=== PATIENT | female | born 1955 | race African-American/Black ===

== ENCOUNTER → 2016-08-23 | Outpatient (CLI) | payer OTHER ==
--- NOTE | 2016-08-24 13:22 | XCELERA REPORT ---
[address] [address] Lower Extremity Arterial Evaluation Name: JAIME ANDERSON Age: 60 yrs Gender: Female : 1955 Patient Status: Outpatient Patient Location: Study Date: 08/23/2016 02:47 PM Procedure: A color flow and duplex scan of the lower extremity arteries was performed bilaterally with velocity and waveform anaylsis. 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 The ankle-brachial index is 1.00. 0% stenosis noted. PPG's seem mildly diminished, reduced phasicity, in digits 1 and 5. Left Side Arterial Evaluation Normal velocity, waveform and triphasic flow are present, from the Common Femoral artery down to the infrageniculate vessels. The ankle-brachial index is 1.01. 0% stenosis noted. PPG's seem mildly diminished, reduced phasicity, in digit 5. Interpretation Summary Mild hemodynamically significant lesions in the bilateral lower extremities, on duplex imaging, at rest. The duplex study is perfectly normal, only PPG's are somewhat abnormal. : CURTIS MCKEON > Eliceo Zuluaga
== END ==
LOC: SP 14:36
PROVIDERS: ATTEND Podiatrist Foot & Ankle Surgery
DX: I73.9 Peripheral vascular disease, unspecified (principal)
CPT/HCPCS: 93925

== ENCOUNTER 2017-01-27 10:13 | Day surgery (SDC) | payer OTHER ==
[2017-01-25 17:54] LABS: ABSOLUTE BASOPHILS # (AUTO) 0.1 10^3/uL (0.0-0.2); ABSOLUTE EOSINOPHILS # (AUTO) 0.5 10^3/uL (0.0-0.6); ABSOLUTE LYMPHOCYTES (AUTO) 4.2 10^3/uL (0.5-4.7); ABSOLUTE MONOCYTES (AUTO) 0.6 10^3/uL (0.1-1.4); ABSOLUTE NEUT (AUTO) 3.8 10^3/uL (1.7-8.2); BASOPHILS % (AUTO) 1.1 % (0-2); HEMATOCRIT 37.6 % (36.0-47.0); HEMOGLOBIN 12.9 g/dL (12.0-15.5); HGB HCT DIFFERENCE 1.1; LYMPHOCYTES % (AUTO) 45.8 % (13-45); MEAN CORPUSCULAR HEMOGLOBIN 28.8 pg (27.0-33.4); MEAN CORPUSCULAR HGB CONC 34.5 g/dL (32.0-36.0); MEAN CORPUSCULAR VOLUME 84 fl (80-97); MONOCYTES % (AUTO) 6.7 % (3-13); RED BLOOD COUNT 4.49 10^6/uL (3.72-5.28); RED CELL DISTRIBUTION WIDTH 14.5 % (11.5-14.0); SEGMENTED NEUTROPHILS % (AUTO) 41.4 % (42-78); WHITE BLOOD COUNT 9.1 10^3/uL (4.0-10.5)
[2017-01-25 17:58] LABS: APPEARANCE,URINE CLEAR; BILIRUBIN,URINE NEGATIVE (NEGATIVE); GLUCOSE, URINE NEGATIVE (NEGATIVE); KETONES,URINE NEGATIVE (NEGATIVE); LEUKOCYTE ESTERASE,URINE NEGATIVE (NEGATIVE); NITRITE,URINE NEGATIVE (NEGATIVE); PROTEIN,URINE NEGATIVE (NEGATIVE); URINE SPECIFIC GRAVITY 1.024; UROBILINOGEN,URINE NEGATIVE mg/dL (<2.0)
[~2017-01-27 10:13] MED LIST: CLINDAMYCIN 600 MG/D5W RTU 600 MG/50 ML RTUPB IV PRN; RINGERS SOLUTION,LACTATED 1,000 ML IV PRN
[2017-01-27] MEDS ORDERED: BUPIVACAINE HCL 0.5 % INJ/PF 30 ML SDV ONE (11:36)
[2017-01-27] MEDS ORDERED: LIDOCAINE 2% INJ (20 MG/ML) 20 ML MDV ONE (11:37)
[2017-01-27] MEDS ORDERED: LIDOCAINE 2% INJ-PF (20 MG/ML) 10 ML AMPUL ONE (11:43)
[2017-01-27] MEDS ORDERED: MIDAZOLAM 2 MG/2 ML INJ ONE (11:43)
[2017-01-27] MEDS ORDERED: FENTANYL CITRATE INJ/PF 100 MCG/2 ML AMPUL ONE (11:43)
[2017-01-27] MEDS ORDERED: PROPOFOL INJ 200 MG/20 ML VIAL IV ONE (11:44)
--- NOTE | 2017-01-27 14:07 | [facility] OPERATIVE REPORT E ---
[facility] Operative Report NAME: JAIME ANDERSON AGE: 61Y DATE OF SURGERY: 01/27/2017 ROOM: PREOPERATIVE DIAGNOSIS: 1. Lipoma, dorsum right foot. 2. Dorsal exostosis, right foot. POSTOPERATIVE DIAGNOSIS: 1. Lipoma, dorsum right foot. 2. Dorsal exostosis, right foot. OPERATION: 1. Excision of lipoma, dorsum right foot. 2. Resection of dorsal exostosis, right foot. SURGEON: CURTIS MCKEON D.P.M. INTRAOPERATIVE FINDINGS: 1. Indicated the presence of a very large lipoma over the dorsal aspect of the foot located over the tarsal area of the right foot. 2. There was also a small exostosis present over the medial and lateral cuneiform. It appears also that there was slight shifting of the cuneiform bones communicating with the navicular and talus. Intraoperative findings were confirmed clinically and radiographically. PROCEDURE: With the patient laying in the dorsal recumbent position, right foot and leg were prepped and draped in the usual standard sterile orthopedic manner. Local anesthesia was administered which was a total ankle block. After the anesthetic effect was accomplished, the right leg was elevated for approximately 2 minutes of time and the right ankle pneumatic tourniquet was inflated up to 250 mmHg. After the blood was exsanguinated from the right foot, the right leg was brought to the level of the table and the margins of the soft tissue mass over the dorsal aspect of the right foot were marked first and after that, a curvilinear incision was placed right through the apical portion of the soft mass. The initial incision was deepened. The superficial and deep subcutaneous tissues were dissected via blunt and sharp dissection. All bleeders were ligated. All vital structures were identified and protected from surgical trauma. At this point, the presence of large lipoma was encountered. It was not a ganglion cyst the way it was felt originally. Very gingerly, the lipoma was removed from its capsulation. After the excision of the lipoma, there was also the presence of a dorsal exostosis over the medial and lateral cuneiform with the communication of the navicular and talus. At this point a periosteal incision was performed. Periosteal structures were dissected away and irregular bony contours were resected in toto. After the satisfactory resection of bone, the surgical area was irrigated with copious amounts of sterile saline solution. The denuded bone was coated with bone wax in order to prevent excessive bone bleeding. After that the periosteal structures were repositioned and closed with 3-0 Vicryl. At this point the right ankle pneumatic tourniquet was deflated. Circulation to the right foot returned to normal immediately as the normal digital color and temperature became apparent. The subcutaneous tissues were closed next from deep to superficial. The skin edges were repositioned and closed with 4-0 Nylon using continuous lock stitch. A Betadine compression dressing was applied around the right foot followed with an GLENIS bandage and a surgical shoe. This patient tolerated the procedures well and left the operating room with stable vital signs and in good condition. Patient was taken to the Recovery Room, alert, conscious and oriented. There were no permanent disabilities anticipated at this time. The immediate postoperative recovery was also very uneventful. The patient was sent home with instructions for postoperative care at home. Patient was also given pain medicine and antibiotics and the family was instructed on how to administer her medications. The patient was allowed to resume normal diet. Patient was instructed to ambulate with crutches without bearing any weight on the right foot. Again, there are no permanent disabilities anticipated at this time and the followup appointment was set in 72 hours. DICTATING PHYSICIAN: CURTIS MCKEON D.P.M. [id number] PHY#: [id number] ID: [id number] JOB#: [id number] ACCT: [id number] cc:CURTIS MCKEON D.P.M. > MTDD
== END 2017-01-27 14:21 | disposition home or self-care (01) ==
LOC: SC 10:13
PROVIDERS: ATTEND Podiatrist Foot & Ankle Surgery
PROC: 0JBQ0ZZ Excision of Right Foot Subcutaneous Tissue and Fascia, Open Approach (ICD-10-PCS; 2017-01-27)
PROC: 0QBL0ZZ Excision of Right Tarsal, Open Approach (ICD-10-PCS; principal; 2017-01-27 11:15)
DX: M25.774 Osteophyte, right foot (principal); D17.39 Benign lipomatous neoplasm of skin and subcutaneous tissue of other sites; I10 Essential (primary) hypertension; K21.9 Gastro-esophageal reflux disease without esophagitis; E66.9 Obesity, unspecified; E11.9 Type 2 diabetes mellitus without complications; Z68.41 Body mass index [BMI] 40.0-44.9, adult; Z88.5 Allergy status to narcotic agent; Z88.0 Allergy status to penicillin; Z79.82 Long term (current) use of aspirin; Z79.84 Long term (current) use of oral hypoglycemic drugs
CPT/HCPCS: 28104; 11420; 36415; 82962; 85025; 81001; 88304 ×2; J2250; J3490 ×2; J3010; J2704; 1480

== ENCOUNTER → 2017-07-05 | Outpatient (CLI) | payer OTHER ==
[2017-07-05 14:42] LABS: ABSOLUTE BASOPHILS # (AUTO) 0.1 10^3/uL (0.0-0.2); ABSOLUTE EOSINOPHILS # (AUTO) 0.3 10^3/uL (0.0-0.6); ABSOLUTE LYMPHOCYTES (AUTO) 3.1 10^3/uL (0.5-4.7); ABSOLUTE MONOCYTES (AUTO) 0.5 10^3/uL (0.1-1.4); ABSOLUTE NEUT (AUTO) 3.6 10^3/uL (1.7-8.2); BASOPHILS % (AUTO) 1.5 % (0-2); EOSINOPHILS % (AUTO) 3.6 % (0-6); HEMATOCRIT 37.1 % (36.0-47.0); HEMOGLOBIN 13.4 g/dL (12.0-15.5); LYMPHOCYTES % (AUTO) 40.9 % (13-45); MEAN CORPUSCULAR HEMOGLOBIN 29.9 pg (27.0-33.4); MEAN CORPUSCULAR HGB CONC 36.2 g/dL (32.0-36.0); MEAN CORPUSCULAR VOLUME 83 fl (80-97); MONOCYTES % (AUTO) 6.8 % (3-13); PLATELET COUNT 428 10^3/uL (150-450); RED BLOOD COUNT 4.49 10^6/uL (3.72-5.28); RED CELL DISTRIBUTION WIDTH 14.3 % (11.5-14.0); SEGMENTED NEUTROPHILS % (AUTO) 47.2 % (42-78); TOTAL CELLS COUNTED % (AUTO) 100 %; WHITE BLOOD COUNT 7.5 10^3/uL (4.0-10.5)
[2017-07-05 14:45] LABS: INTERNATIONAL RATION (INR) 0.88; PROTHROMBIN TIME 12.6 SEC (11.4-15.4)
[2017-07-05 14:46] LABS: PARTIAL THROMBOPLASTIN TIME 29.6 SEC (23.5-35.8)
== END ==
LOC: OD 14:17
PROVIDERS: ATTEND Internal Medicine Pulmonary Disease
DX: Z79.01 Long term (current) use of anticoagulants (principal); R91.8 Other nonspecific abnormal finding of lung field
CPT/HCPCS: 36415; 85025; 85610; 85730

== ENCOUNTER 2017-07-12 08:49 | Day surgery (SDC) | payer OTHER ==
[2017-07-12 09:46] VITALS: BP 139/90
[2017-07-12 09:51] LABS: INTERNATIONAL RATION (INR) 0.91; PROTHROMBIN TIME 12.9 SEC (11.4-15.4)
[2017-07-12 09:52] LABS: ABSOLUTE BASOPHILS # (AUTO) 0.1 10^3/uL (0.0-0.2); ABSOLUTE EOSINOPHILS # (AUTO) 0.3 10^3/uL (0.0-0.6); ABSOLUTE LYMPHOCYTES (AUTO) 2.5 10^3/uL (0.5-4.7); ABSOLUTE MONOCYTES (AUTO) 0.5 10^3/uL (0.1-1.4); ABSOLUTE NEUT (AUTO) 4.3 10^3/uL (1.7-8.2); BASOPHILS % (AUTO) 1.2 % (0-2); EOSINOPHILS % (AUTO) 3.7 % (0-6); HEMATOCRIT 37.7 % (36.0-47.0); HEMOGLOBIN 13.2 g/dL (12.0-15.5); LYMPHOCYTES % (AUTO) 32.7 % (13-45); MEAN CORPUSCULAR HEMOGLOBIN 28.9 pg (27.0-33.4); MEAN CORPUSCULAR HGB CONC 34.9 g/dL (32.0-36.0); MEAN CORPUSCULAR VOLUME 83 fl (80-97); MONOCYTES % (AUTO) 6.1 % (3-13); PARTIAL THROMBOPLASTIN TIME 29.7 SEC (23.5-35.8); PLATELET COUNT 430 10^3/uL (150-450); RED BLOOD COUNT 4.55 10^6/uL (3.72-5.28); RED CELL DISTRIBUTION WIDTH 14.3 % (11.5-14.0); SEGMENTED NEUTROPHILS % (AUTO) 56.3 % (42-78); TOTAL CELLS COUNTED % (AUTO) 100 %; WHITE BLOOD COUNT 7.6 10^3/uL (4.0-10.5)
[2017-07-12 10:09] LABS: BLOOD UREA NITROGEN 13 mg/dL (7-20); GLUCOSE 131 mg/dL (75-110)
[2017-07-12] MEDS ORDERED: MIDAZOLAM 2 MG/2 ML INJ ONE (10:55)
[2017-07-12] MEDS ORDERED: FENTANYL CITRATE INJ/PF 100 MCG/2 ML AMPUL ONE (10:55)
--- NOTE | 2017-07-12 15:09 | RADIOLOGY REPORT (SQ) ---
EXAM DESCRIPTION: CT CHEST WITHOUT COMPLETED DATE/TIME: 07/12/2017 11:32 am REASON FOR STUDY: NONSPECIFIC ABNORMAL FINDING ON LUNG FIELD R91.8 OTHER NONSPECIFIC ABNORMAL FINDI NG OF LUNG FIELD COMPARISON: OUTSIDE CT EXAM 06/20/2017, Dr Marie TECHNIQUE: CT scan performed of the chest without intravenous contrast. Images reviewed with lung, soft tissue and bone windows. Reconstructed coronal and sagittal MPR images reviewed. All images st ored on PACS. All CT scanners at this facility use dose modulation, iterative reconstruction, and/or weight based d osing when appropriate to reduce radiation dose to as low as reasonably achievable (ALARA). [facility]: Dose Right [facility]: CareDose [facility]: Dose Right [facility]: Teradose 4D [facility]: [employer] RADIATION DOSE: CT Rad equipment meets quality standard of care and radiation dose reduction techniq ues were employed. CTDIvol: 20.2 - 20.4 mGy. DLP: 1099 mGy-cm. mGy. LIMITATIONS: No technical limitations. FINDINGS: Patient was originally scheduled today for a CT-guided lung biopsy of the dominant density in the left posterior costophrenic sulcus. Biopsy was canceled, as the multiple lesions in the righ t and left posterior costophrenic sulci have undergone cavitation and are less solid in appearance, a nd smaller than on the prior CT exam. LUNGS AND PLEURA: In the right posterior costophrenic sulcus, just above the hemidiaphragm a thin wal led irregularly-shaped cavity is present measuring 2.5 x 2.3 cm in size (was 3.3 x 2.5 cm in size on 06/20/2017). The masslike lesion in the left posterior costophrenic sulcus is currently partially cavitary, and me asures about 3 x 2.8 cm (was 3.4 x 3.3 cm on 06/20/2017). In the posterior left lung base, there are 2 other smaller partially cavitary lesions which are sligh tly smaller than on 06/20/2017. No pleural effusions. No pneumothorax. No other pulmonary masses. HILAR AND MEDIASTINAL STRUCTURES: No identified masses or abnormal nodes. No obvious aneurysm. HEART AND VASCULAR STRUCTURES: No aneurysm. No pericardial effusion. UPPER ABDOMEN: Clips post cholecystectomy. THYROID AND OTHER SOFT TISSUES: No masses. No adenopathy. BONES: No significant finding. HARDWARE: None in the chest. OTHER: No other significant findings. IMPRESSION: Decrease in size of lesions in the right and left lung bases, with further cavitation. Biopsy was deferred today. TECHNICAL DOCUMENTATION: JOB ID: [id number] Quality ID # [id number]: Final reports with documentation of one or more dose reduction techniques (e.g., Au tomated exposure control, adjustment of the mA and/or kV according to patient size, use of iterative reconstruction technique) 2010 [employer]- All Rights Reserved
== END 2017-07-12 11:50 | disposition home or self-care (01) ==
LOC: RAD 08:49
PROVIDERS: ATTEND Internal Medicine Pulmonary Disease
DX: R91.8 Other nonspecific abnormal finding of lung field (principal); F17.210 Nicotine dependence, cigarettes, uncomplicated; G47.33 Obstructive sleep apnea (adult) (pediatric); R94.31 Abnormal electrocardiogram [ECG] [EKG]; F41.9 Anxiety disorder, unspecified; I10 Essential (primary) hypertension; K21.9 Gastro-esophageal reflux disease without esophagitis; Z88.5 Allergy status to narcotic agent; Z88.0 Allergy status to penicillin; Z80.8 Family history of malignant neoplasm of other organs or systems
CPT/HCPCS: 36415; 71250; 82565; 82947; 84520; 85025; 85610; 85730; J2250; J3010